=== PATIENT | male | born 1970 ===

== ENCOUNTER 2021-09-22 09:45 | Inpatient (IN) | payer OTHER ==
[~2021-09-22] VITALS: Ht 180.3 cm; Wt 112.5 kg
== END 2021-09-28 18:22 | disposition home or self-care (01) | DRG 331 ==
LOC: SURH 09-26 06:00 → O/R 09-26 06:00 → SURH 09-26 07:00
PROVIDERS: ADMIT Colon & Rectal Surgery; ATTEND Colon & Rectal Surgery
PROC: 07BC4ZZ Excision of Pelvis Lymphatic, Percutaneous Endoscopic Approach (ICD-10-PCS; 2021-09-26)
PROC: 0DTG4ZZ Resection of Left Large Intestine, Percutaneous Endoscopic Approach (ICD-10-PCS; principal; 2021-09-26 07:00)
DX: C18.6 Malignant neoplasm of descending colon (principal); R59.0 Localized enlarged lymph nodes; E78.5 Hyperlipidemia, unspecified; K63.5 Polyp of colon

== ENCOUNTER 2021-09-23 06:33 | Day surgery (SDC) | payer OTHER | END 2021-09-23 13:45 | disposition home or self-care (01) | LOC: AMB-ENDOS 06:33 | PROVIDERS: ATTEND Colon & Rectal Surgery | DX: D12.4 Benign neoplasm of descending colon (principal); K62.1 Rectal polyp; K64.8 Other hemorrhoids; Z12.11 Encounter for screening for malignant neoplasm of colon ==